=== PATIENT | female | born 1960 | race American Indian/Alaskan Native ===

== ENCOUNTER 2022-07-01 12:05 | Emergency (ER) | payer MEDICAID | END 2022-07-01 13:00 | disposition left against medical advice (07) | LOC: MW.ED 12:05 | DX: Z53.21 Procedure and treatment not carried out due to patient leaving prior to being seen by health care provider (principal) | CPT/HCPCS: 93005 ==

== ENCOUNTER 2022-07-01 15:06 | Emergency (ER) | payer MEDICAID ==
[2022-07-01] MEDS ORDERED: Sodium Chloride 0.9% 1,000 ML IV ONE (15:23)
[2022-07-01 16:21] LABS: CARBON DIOXIDE,CO2 21.4 mmol/L (21.0-32.0); POTASSIUM,K 3.6 mmol/L (3.5-5.1)
[2022-07-01] MEDS ORDERED: Meclizine 25 MG Tab PO ONE (16:33)
[2022-07-01] MEDS ORDERED: Nitrofurantoin Monohydrate/Macrocrystalline 100 MG Cap PO ONE (17:09)
== END 2022-07-01 17:29 | disposition home or self-care (01) ==
LOC: MW.ED 15:06
DX: R42 Dizziness and giddiness (principal); N39.0 Urinary tract infection, site not specified; I10 Essential (primary) hypertension; Z88.0 Allergy status to penicillin; Z88.2 Allergy status to sulfonamides; Z88.8 Allergy status to other drugs, medicaments and biological substances; Z79.899 Other long term (current) drug therapy
CPT/HCPCS: 36415; 80053; 81001; 85025; 87086; 96360; 99284; A9270; J7030

== ENCOUNTER 2022-08-10 17:49 | Emergency (ER) | payer OTHER, MEDICAID ==
[2022-08-10] MEDS ORDERED: Iopamidol 755 Mg/ML 100 ML Bottle IV ONE (18:06)
[2022-08-10] MEDS ORDERED: Sodium Chloride 0.9% 10 ML Syringe FLUSH PRN (18:06)
[2022-08-10] MEDS ORDERED: Sodium Chloride 0.9% 20 ML SDV IV PRN (18:06)
[2022-08-10] MEDS ORDERED: Sodium Chloride 0.9% 2.5 ML Syringe FLUSH PRN (18:06)
[2022-08-10 18:34] LABS: BLOOD UREA NITROGEN,BUN 5 mg/dL (7.0-18.0); CARBON DIOXIDE,CO2 19.6 mmol/L (21.0-32.0); CHLORIDE,CL 104 mmol/L (98-107); GLUCOSE RANDOM 93 mg/dL (74-106); LIPASE 161 U/L (73-393); POTASSIUM,K 2.8 mmol/L (3.5-5.1); SODIUM,NA 140 mmol/L (136-145)
[2022-08-10 18:53] LABS: ESTIMATED GFR 102 mL/min (>60)
[2022-08-10] MEDS ORDERED: Potassium Chloride 10% 20 MEQ/15 ML Soln 30 ML UD Cup PO ONE (20:33)
[2022-08-10] MEDS ORDERED: Potassium Chloride 10% 20 MEQ/15 ML Soln 30 ML UD Cup ONE (23:18)
== END 2022-08-11 02:36 | disposition home or self-care (01) ==
LOC: MW.ED 17:49
DX: S63.502A Unspecified sprain of left wrist, initial encounter (principal); S09.90XA Unspecified injury of head, initial encounter; D64.9 Anemia, unspecified; I10 Essential (primary) hypertension; F17.210 Nicotine dependence, cigarettes, uncomplicated; Z79.899 Other long term (current) drug therapy; Z88.0 Allergy status to penicillin; Z88.6 Allergy status to analgesic agent; Z88.2 Allergy status to sulfonamides; V48.6XXA Car passenger injured in noncollision transport accident in traffic accident, initial encounter; Y92.410 Unspecified street and highway as the place of occurrence of the external cause
CPT/HCPCS: 36415; 36430; 70450; 71260; 72125; 73110; 74177; 80053; 80305; 80307; 81001; 83690; 84703; 85025; 86850; 86900; 86901; 86920; 87086; 87088; 87186; 99285; A9270; P9016; Q9967; 99284